=== PATIENT | male | born 1945 | race Caucasian/White ===

== ENCOUNTER 2020-06-28 13:56 | Outpatient (CLI) | payer MEDICARE, BC, SELFPAY ==
--- NOTE | 2020-06-28 14:35 | ECG_ITS ---
Measurements Intervals [place] Rate: 47 P: 80 MO: 237 QRS: 40 QRSD: 105 T: 43 QT: 456 QTc: 404 Interpretive Statements SINUS BRADYCARDIA WITH FIRST DEGREE AV BLOCK DELAYED PRECORDIAL R/S TRANSITION ABNORMAL ECG Electronically Signed On 06-28-2020 14:39:19 CDT by Shimon Hendrickson D.O.
== END 2020-06-28 13:57 | disposition home or self-care (01) ==
LOC: CHSCARD 14:01
PROVIDERS: PCP Family Medicine
DX: I48.0 Paroxysmal atrial fibrillation (principal)
CPT/HCPCS: 93005

== ENCOUNTER 2020-08-27 13:11 | Outpatient (CLI) | payer MEDICARE, BC, SELFPAY ==
--- NOTE | 2020-08-27 13:45 | ECG_ITS ---
Measurements Intervals [place] Rate: 52 P: 98 [place]: 221 QRS: 45 QRSD: 97 T: 53 QT: 437 QTc: 407 Interpretive Statements SINUS BRADYCARDIA WITH FIRST DEGREE AV BLOCK INCOMPLETE RIGHT BUNDLE BRANCH BLOCK DELAYED PRECORDIAL R/S TRANSITION MINIMAL Q WAVES- INFERIOR LEADS ABNORMAL ECG Electronically Signed On 08-27-2020 13:50:59 CDT by Shimon Hendrickson D.O.
== END 2020-08-27 13:12 | disposition home or self-care (01) ==
PROVIDERS: PCP Family Medicine
DX: I48.0 Paroxysmal atrial fibrillation (principal)
CPT/HCPCS: 93005

== ENCOUNTER 2021-02-20 13:25 | Outpatient (CLI) | payer MEDICARE, SELFPAY ==
[2021-02-20 15:12] LABS: Prostate Specific Antigen 0.5 ng/mL (< OR = 4.0)
== END 2021-02-20 13:26 | disposition home or self-care (01) ==
LOC: CHSLAB 13:29
PROVIDERS: PCP Family Medicine; Visit Provider Urology
DX: Z12.5 Encounter for screening for malignant neoplasm of prostate (principal)
CPT/HCPCS: 36415; 84153; G0103

== ENCOUNTER 2022-02-21 09:43 | Emergency (ER) | payer MEDICARE, BC, SELFPAY ==
--- NOTE | ~2022-02-21 | CT_ITS ---
EXAMINATION: CT lumbar spine [facility] EXAM DATE: 02/21/2022 10:54 INDICATION: Sciatica to LT side hip, buttocks, and knee . TECHNIQUE: Spiral CT of the lumbar spine was performed without contrast. Axial, coronal and sagittal images lumbar spine were reviewed. The dose-length product (DLP) for this examination was 365.23 mG y-cm. The exposure was tailored according to patient size (auto mA exposure control), and iterative reconstruction (ASIR) was used as additional dose reduction technique. Correlation is made to Lumbar x-ray 04/17/2018. FINDINGS: Moderate to severe disc disease L2-3 and L4-5, moderate at L1-3 and L3-4. The vertebral bod ies are aligned in the AP dimension. There are no acute fractures identified. Sacroiliac joints are u nremarkable. There are no osteoblastic or osteolytic lesions identified. No spondylolysis. Level by level evaluation: T12-L1: Disc does not extend beyond the endplate margin. Facet arthropathy: None. Neural foraminal stenosis: No stenosis. Central canal stenosis: No stenosis. L1-L2: There is a mild diffuse disc bulge. Facet arthropathy: None. Neural foraminal stenosis: No stenosis. Central canal stenosis: No stenosis. L2-L3: There is a moderate diffuse disc bulge. Facet arthropathy: Mild. Neural foraminal stenosis: Mild to moderate left, mild right. Central canal stenosis: Mild to moderate. L3-L4: There is a moderate diffuse disc bulge. Facet arthropathy: Mild. Neural foraminal stenosis: Mild to moderate bilateral. Central canal stenosis: Mild to moderate. L4-L5: There is a moderate diffuse disc bulge. Facet arthropathy: Moderate. Neural foraminal stenosis: Moderate right, mild to moderate left. Central canal stenosis: Moderate. L5-S1: There is a moderate diffuse disc bulge. Facet arthropathy: Moderate to severe left, moderate right. Neural foraminal stenosis: Moderate to severe right, moderate left. Central canal stenosis: Mild to moderate. IMPRESSION: 1. Moderate to severe L2-3, L4-5 disc disease. 2. L4-5 moderate central canal stenosis. 3. Right L5-S1 neural foramina most narrowed on study. Reviewed, dictated and finalized at location B.
[2022-02-21 10:04] VITALS: BP 121/67; PULSE 63; RESP 20; TEMP 36.7; O2SAT 98
--- NOTE | 2022-02-21 10:07 | ED.BACK ---
HPI - Back Pain/Injury General Chief Complaint: Back Pain/Injury Stated Complaint: BACK PAIN Time Seen by Provider: 02/21/22 10:08 Source: patient History of Present Illness HPI Narrative: 76-year-old male with hypothyroidism, dyslipidemia and atrial fibrillation on propafenone presents to the ER with a 7 day history of -- left lower back pain radiating to his buttocks and into the back of his thigh and to the lateral aspect of his thigh and knee. Pain is lancinating, lasting for a few seconds with certain movements of his thigh. no motor or sensory deficits. No bladder involvement. No history of trauma. MD elicited complaint: back pain Onset (ago): day(s) ( Started 8 days ago.) Timing: intermittent Severity: moderate Pain scale (0-10): 4 Similar Symptoms Previously: No Quality: stabbing Location: lumbar spine Radiation: buttocks and left upper leg Exacerbating factors: movement Relieving factors: immobilization Associated symptoms: denies other symptoms Work related injury: No Related Data Home Medications Medication Instructions Recorded Confirmed atenolol 100 mg PO DAILY 02/21/22 02/21/22 levothyroxine [Synthroid] 88 mcg PO DAILY 02/21/22 02/21/22 propafenone 300 mg PO TID 02/21/22 02/21/22 rosuvastatin 20 mg PO HS 02/21/22 02/21/22 Allergies Allergy/AdvReac Type Severity Reaction Status Date / Time No Known Allergies Allergy Verified 02/21/22 10:14 Review of Systems Review of Systems: All systems reviewed & are unremarkable except as noted in HPI and below Constitutional: Constitutional: Reports as per HPI and Reports no additional constitutional complaints Eyes: Eyes: Reports as per HPI and Reports no additional eye complaints ENT: Reports system reviewed and no additional complaints, except as documented and Reports as per HPI Cardiovascular: Cardiovascular: Reports as per HPI and Reports no additional cardiovascular complaints Respiratory: Respiratory: Reports as per HPI and Reports no additional respiratory complaints Gastrointestinal: Gastrointestinal: Reports as per HPI and Reports no additional gastrointestinal complaints Genitourinary: Genitourinary: Reports no additional male genitourinary complaints and Reports as per HPI Musculoskeletal: Musculoskeletal: Reports no additional musculoskeletal complaints, Reports as per HPI and Reports back pain Integumentary/Breasts: Skin/Breast: Reports system reviewed and no additional complaints, except as docu and Reports as per HPI Neurologic: Reports system reviewed and no additional complaints, except as documented and Reports as per HPI Psychiatric: Psychiatric: Reports no additional psychiatric complaints and Reports as per HPI Endocrine: Endocrine: Reports no additional endocrine complaints and Reports as per HPI Hematologic/Lymphatic: Hematologic/Lymphatic: Reports no additional hematologic/lymphatic complaints and Reports as per HPI Allergic/Immunologic: Allergic/Immunologic: Reports no additional allergic/immunologic complaints and Reports as per HPI [facility] Past Medical History Medical History Atrial fibrillation Dyslipidemia Hypothyroid Exam Const: General: no acute distress and alert Orientation/consciousness: patient oriented x3 HENMT: Head: normal to inspection Eyes: Conjunctivae: conjunctivae normal Pupils: Equal, round and reactive pupils present EOM: EOMs intact bilaterally Neck: Neck: normal visual inspection and no lymphadenopathy Chest: Chest palpation & inspection: normal inspection of the chest and abnormal inspection of the chest Resp: Effort & Inspection: normal respiratory effort Auscultation: clear to auscultation bilaterally Cardio: Rate: regular rate Rhythm: regular rhythm GI: GI Palp: Yes Soft to palpation Other: no tenderness/ rigidity / rebound. : Male General Exam: Yes normal external exam Testes: Testes normal Back/Spine/Pelvis:
[2022-02-21 11:40] VITALS: BP 111/56; PULSE 52; RESP 20; TEMP 36.7; O2SAT 96
== END 2022-02-21 11:43 | disposition home or self-care (01) ==
PROVIDERS: Emergency Provider Internal Medicine Critical Care Medicine; PCP Family Medicine
DX: M48.061 Spinal stenosis, lumbar region without neurogenic claudication (principal); M54.42 Lumbago with sciatica, left side; M51.27 Other intervertebral disc displacement, lumbosacral region
CPT/HCPCS: 72131; 99284

== ENCOUNTER 2022-02-28 06:46 | Outpatient (CLI) | payer MEDICARE, BC, SELFPAY ==
--- NOTE | ~2022-02-28 | MR_ITS ---
EXAMINATION: MR lumbar spine wo con DATE: 02/28/2022 08:31 INDICATION: Left-sided lumbar radiculopathy. TECHNIQUE: Magnetic resonance imaging (MRI) of the lumbar spine was performed without intravenous con trast. Sequences included sagittal T2-weighted FSE, sagittal T2-weighted FS FSE, sagittal T1-weighted FSE, and axial T2-weighted FSE. COMPARISON: Lumbar spine MRI 12/22/2015 FINDINGS: There is 7 degrees levocurvature of lumbar spine. There is 3 mm retrolisthesis of L4 on L5. There are Schmorl's nodes at multiple levels. There is mildly decreased disc height at L1-L2, severe ly decreased disc height at L2-L3, mildly decreased disc height at L3-L4, severely decreased disc hei ght at L4-L5, and moderately decreased disc height at L5-S1 with endplate remodeling. The distal spin al cord signal intensity is normal. The conus medullaris is at L1-L2. The following disc levels are s pecifically discussed: L1-L2: The disc is bulging and has an annular fissure. There is mild bilateral facet joint osteoarthr itis. There is mild bilateral neural foraminal stenosis. There is mild central canal stenosis. L2-L3: The disc is bulging with superimposed left subarticular and foraminal zone extrusion. There is mild bilateral facet joint osteoarthritis. There is mild right and moderate left neural foraminal st enosis. There is mild central canal stenosis. L3-L4: The disc is bulging and has an annular fissure. There is severe right and mild left facet join t osteoarthritis. There is mild bilateral neural foraminal stenosis. There is mild central canal sten osis. L4-L5: The disc is bulging and has an annular fissure. There is severe bilateral facet joint osteoart hritis. There is moderate bilateral neural foraminal stenosis. There is mild central canal stenosis. L5-S1: The disc is bulging and has an annular fissure. There is severe bilateral facet joint osteoart hritis. There is moderate bilateral neural foraminal stenosis. There is mild central canal stenosis. IMPRESSION: 1. Severe lumbar spondylosis, worsened from 12/22/2015. Reviewed, dictated and finalized at location B.
== END 2022-02-28 06:47 | disposition home or self-care (01) ==
LOC: CHSIMG 06:47
PROVIDERS: PCP Family Medicine; Visit Provider Family Medicine
DX: M54.16 Radiculopathy, lumbar region (principal)
CPT/HCPCS: 72148

== ENCOUNTER 2022-03-14 16:34 | Emergency (ER) | payer MEDICARE, BC, SELFPAY ==
[2022-03-14 16:40] VITALS: BP 114/63; PULSE 60; RESP 16; TEMP 36.5; O2SAT 97
--- NOTE | 2022-03-14 17:09 | ED.BACK ---
HPI - Back Pain/Injury General Chief Complaint: Back Pain/Injury Stated Complaint: left sided back and leg pain Time Seen by Provider: 03/14/22 16:38 Source: patient and RN notes reviewed Mode of arrival: ambulatory Limitations: no limitations History of Present Illness MD elicited complaint: back pain Pertinent past history: prior back pain Onset (ago): day(s) (3) Timing: constant Severity: moderate Pain scale (0-10): 6 Similar Symptoms Previously: Yes Quality: dull and aching Location: left lower back (to left buttock radiating ) Radiation: buttocks Exacerbating factors: movement Relieving factors: none Associated symptoms: denies other symptoms Treatments prior to arrival: prescription analgesics Work related injury: No Related Data Home Medications Medication Instructions Recorded Confirmed atenolol 100 mg PO DAILY 02/21/22 03/14/22 levothyroxine [Synthroid] 88 mcg PO DAILY 02/21/22 03/14/22 propafenone 300 mg PO TID 02/21/22 03/14/22 rosuvastatin 20 mg PO HS 02/21/22 03/14/22 aspirin 81 mg PO DAILY 03/14/22 03/14/22 Allergies Allergy/AdvReac Type Severity Reaction Status Date / Time No Known Allergies Allergy Verified 03/14/22 16:51 Review of Systems Review of Systems: All systems reviewed & are unremarkable except as noted in HPI and below PMFSH Past Medical History Medical History Atrial fibrillation Dyslipidemia Hypothyroid Sciatica Exam Const: General: healthy appearing, no acute distress and alert Nutritional Appearance: well nourished Orientation/consciousness: patient oriented x3 HENMT: Head: normal to inspection Ears: external ears normal, TM's normal bilaterally and EAC's normal General nose exam: Normal external nose present and Normal nares present Face and sinus: normal facial exam and sinuses nontender Mouth: Yes lip normal and Yes moist mucous membranes Throat: posterior oropharynx normal Eyes: Conjunctivae: conjunctivae normal Pupils: Equal, round and reactive pupils present EOM: EOMs intact bilaterally Neck: Neck: normal visual inspection and no lymphadenopathy Chest: Chest palpation & inspection: normal inspection of the chest Resp: Effort & Inspection: normal respiratory effort Auscultation: clear to auscultation bilaterally Cardio: Rate: regular rate Rhythm: regular rhythm GI: GI Palp: Yes Soft to palpation and No Tenderness to palpation present (GI) Auscultation: normal bowel sounds : General: Yes bladder normal to palpation and Yes no CVA tenderness Back/Spine/Pelvis: Back: no CVA tenderness Skin: General skin exam: normal color Neuro: General: patient oriented x3, moves all extremities, no meningeal signs, no focal motor deficits and CN's II-XI intact bilaterally Extrem: General: normal to inspection and no pedal edema Other: minimally tender left upper and lateral buttock with no acute redness, swelling or deformity. normal ambulation. no acute neurovascular deficit of lower extremities. Psych: Appearance: grossly normal and well kempt Mental Status: mental status grossly normal Affect: normal affect Attitude: cooperative Thought content: Yes Normal thought content present Course Course Emergency Course: Pt was stable in the ED, less painful. Reevaluation(s) Date: 03/14/22 Time: 17:30 Vital Signs Vital signs: Vital Signs Temperature 36.5 C 03/14/22 16:40 Pulse Rate 60 03/14/22 16:40 Respiratory Rate 16 03/14/22 16:40 Blood Pressure 114/63 03/14/22 16:40 Pulse Oximetry 97 03/14/22 16:40 Temperature 36.5 C 03/14/22 16:40 Pulse Rate 60 03/14/22 16:40 Respiratory Rate 16 03/14/22 16:40 Blo
[2022-03-14] MEDS: KETOROLAC 30 MG/ML VIAL (*BKC) IM (17:12)
== END 2022-03-14 17:16 | disposition home or self-care (01) ==
PROVIDERS: Emergency Provider Emergency Medicine; PCP Family Medicine
DX: M54.32 Sciatica, left side (principal)
CPT/HCPCS: 96372; 99283; J1885

== ENCOUNTER 2022-04-17 13:07 | Emergency (ER) | payer MEDICARE, BC, SELFPAY ==
--- NOTE | 2022-04-17 13:23 | ED.BACK ---
HPI - Back Pain/Injury General Chief Complaint: Back Pain/Injury Stated Complaint: Back pain Time Seen by Provider: 04/17/22 13:23 Source: patient Mode of arrival: ambulatory History of Present Illness HPI Narrative: 76-year-old male with a history of, dyslipidemia, atrial fibrillation on propafenone, chronic low back pain had a recent MRI which revealed severe lumbar spondylosis. It revealed schmorls nodes at multiple levels, decreased intervertebral disc height with bulging at multiple levels with neural foraminal stenosis and mild central canal stenosis. The patient follows up with Dr. Caraballo on a regular basis. The patient came to the ER on 02/21/2022 when I saw him and give him [place]. He saw Dr. Gee on 03/16/2022 who gave him oxycodone 120 pills. The patient went to Dr. Gee's office the conduct see Dr. Gee. He was seen by Dr. Gee's associate refused to give him any pain pills. The patient complains of -- with low back pain radiating to his left lower extremities. His pain is severe and intolerable. No bladder or bowel involvement. No sensory loss. MD elicited complaint: back pain Pertinent past history: prior back pain Onset (ago): month(s) Timing: intermittent Severity: severe Pain scale (0-10): 10 Similar Symptoms Previously: Yes Quality: aching Location: lumbar spine Radiation: left leg below the knee Exacerbating factors: movement Relieving factors: immobilization Associated symptoms: denies other symptoms Work related injury: No Related Data Home Medications Medication Instructions Recorded Confirmed atenolol 100 mg tablet 100 mg PO DAILY 02/21/22 04/17/22 levothyroxine 88 mcg tablet 88 mcg PO DAILY 02/21/22 04/17/22 (Synthroid) propafenone 300 mg tablet 300 mg PO TID 02/21/22 04/17/22 rosuvastatin 20 mg tablet 20 mg PO HS 02/21/22 04/17/22 aspirin 81 mg tablet 81 mg PO DAILY 03/14/22 04/17/22 oxycodone 10 mg tablet 10 mg PO Q6H PRN Pain 04/17/22 04/17/22 Allergies Allergy/AdvReac Type Severity Reaction Status Date / Time No Known Allergies Allergy Verified 03/14/22 16:51 Review of Systems Review of Systems: All systems reviewed & are unremarkable except as noted in HPI and below Constitutional: Constitutional: Reports as per HPI and Reports no additional constitutional complaints Eyes: Eyes: Reports as per HPI and Reports no additional eye complaints ENT: Reports system reviewed and no additional complaints, except as documented and Reports as per HPI Cardiovascular: Cardiovascular: Reports as per HPI and Reports no additional cardiovascular complaints Respiratory: Respiratory: Reports as per HPI and Reports no additional respiratory complaints Gastrointestinal: Gastrointestinal: Reports as per HPI and Reports no additional gastrointestinal complaints Genitourinary: Genitourinary: Reports no additional male genitourinary complaints and Reports as per HPI Musculoskeletal: Musculoskeletal: Reports no additional musculoskeletal complaints, Reports as per HPI and Reports back pain Comments: Low back pain with pain in multiple areas of the left lower extremities. No motor or sensory loss. Integumentary/Breasts: Skin/Breast: Reports system reviewed and no additional complaints, except as docu Neurologic: Reports system reviewed and no additional complaints, except as documented and Reports as per HPI Psychiatric: Psychiatric: Reports no additional psychiatric complaints and Reports as per HPI Endocrine: Endocrine: Reports no additional endocrine complaints and Reports as per HPI Hematologic/Lymphatic: Hematologic/Lymphatic: Reports no additional hematologic/lymphatic complaints and Reports as per HPI Allergic/Immunologic: Allergic/Immunologic: Reports no additional allergic/immunologic complaints and Reports as per HPI [facility] Past Medical History Medical History Atrial fibrillation Dyslipidemia Hypothyroid Sciatica
[2022-04-17 13:24] VITALS: BP 133/79; PULSE 56; TEMP 36.6; O2SAT 99
[2022-04-17 13:32] VITALS: BP 133/79; PULSE 78; RESP 20; TEMP 36.6; O2SAT 98
[2022-04-17 14:36] VITALS: BP 130/79; PULSE 84; RESP 18; O2SAT 99
[2022-04-17 14:41] VITALS: TEMP 36.6
== END 2022-04-17 14:43 | disposition home or self-care (01) ==
PROVIDERS: Emergency Provider Internal Medicine Critical Care Medicine
DX: M47.817 Spondylosis without myelopathy or radiculopathy, lumbosacral region (principal)
CPT/HCPCS: 99283

== ENCOUNTER 2025-05-09 19:42 | Outpatient (CLI) | payer MEDICARE, BC, SELFPAY ==
[2025-06-09 12:41] VITALS: BMI 23.5
--- NOTE | 2025-06-09 12:41 | P.SLEEP_ITS ---
Sleep Study Date of Study: 05/09/25 Ordering Provider: Ji CareyMD Interpreting Physician: Kimberly Russo, DO Sleep Study Type: Polysomnogram Height: 1.7 m Weight: 68.039 kg Body Mass Index: 23.5 Neck Circumference (inches): 14.25 Harper: 9 Reason for Sleep Study snoring, difficulty falling and staying asleep Sleep History The patient is a 79-year-old male who had a sleep study ordered by his ENT for evaluation of sleep apnea. The patient denies awakening from sleep short of breath. He denies awakening at night with heartburn, belching, or cough. He occasionally snores, and it is occasionally loud enough that others complain. He rarely has trouble sleeping when he has a cold. He denies waking up gasping for air throughout the night. He denies having breathing problems at night observed by himself or others. He rarely sweats excessively at night. He denies having heart palpitations or irregular heartbeats during the night. He occasionally falls asleep during the day but rarely while driving. He denies sleep paralysis, cataplexy, and hypnagogic/hypnopompic hallucinations. He occasionally has trouble at school or work due to sleepiness. He denies feeling afraid of going to sleep. He rarely has nightmares. He rarely remembers his dreams. He occasionally has thoughts racing through his mind. He rarely feels sad or depressed. He occasionally has anxiety. He rarely has muscular tension. He denies noticing parts of his body jerk. He denies kicking during the night. He denies having crawling and aching feelings in his legs and denies having leg pain during the night. He denies grinding his teeth during sleep and denies awakening with morning jaw pain. He denies being bothered by pain during the day and denies being awakened by pain during the night. He denies waking up feeling stiff in the morning. He denies waking up with sore or aching muscles. He denies waking up with pain in the neck, spine, and other joints. He goes to bed at 11:30 p.m. every night. The amount of time it takes for him to fall asleep is variable. He wakes up 2-4 times throughout the night. He wakes up at 6 a.m. every morning. He typically gets 4 to 5 hours of sleep per night. He will stay in bed for up to an hour after waking up in the morning. He currently lives alone. He denies consuming any caffeinated beverages within 2 hours of bedtime. He denies engaging in physical exercise before bedtime. He denies reading and watching television before falling asleep. He will take naps in the afternoon or the evening, and they are refreshing. He denies consuming any caffeinated beverages throughout the day. He denies tobacco, alcohol, and recreational drug use. [facility] Past Medical History Medical History Sciatica Atrial fibrillation Dyslipidemia Hypothyroid Family History Family History Father Cerebrovascular accident Mother Diabetes mellitus Hypertension Social History Social History Smoking status: Never smoker Alcohol intake: never Substance use: never Lack of Transportation: No Lack of Food: Never True Current Housing: I Have Housing Concerned About Future Housing: No Difficulty Paying Gas/Electric Bills: No Difficulty Paying for Meds: No Currently Unemployed: No Education: High School Diploma/GED Difficulty w/ Childcare or Family Care: No Living arrangements: alone Occupation/Education: retired Gender identity (if verbalized by the patient): Male Medications Home Medications ?Medication ?Instructions ?Recorded ?Confirmed ?Type atenolol 100 mg tablet 100 mg PO DAILY 02/21/22 05/27/25 History levothyroxine 88 mcg tablet 88 mcg PO DAILY 02/21/22 05/27/25 History (Synthroid) propafenone 300 mg tablet 300 mg PO TID 02/21/22 05/27/25 History apixaban 5 mg tablet (Eliquis) 5 mg PO 02/13/23 05/27/25 History ciprofloxacin 0.3 %-dexamethasone 5 drp LEFT EAR TID 14 days #7.5 mL 05/27/25 05/27/25 Rx 0.1 % ear drops,suspension fexofenadine 180 mg tablet 180 mg PO DAILY 05/27/25 05/27/25 History hydrocodone 7.5 mg-acetaminophen tablet PO 05/27/25 05/27/25 History 325 mg tablet Sleep Procedure A full night polysomnogram using the [employer] multi-channel system recor ded the standard physiologic parameters including EEG, EOG, submentalis EMG, anterior tibialis EMG, EKG, body position, nasal and oral airflow using nasal pressure sensor and thermistor.? Respiratory parameters of chest and abdominal movements were recorded with Respiratory Inductance Plethysmography belts. Oxygen saturation was recorded by pulse oximetry. Video monitoring was also performed. Sleep stages, periodic limb movements, and EEG arousals were scored in 30 second epochs according to the criteria of the AASM Scoring Manual. The Apnea-Hypopnea Index was calculated using [facility] guidelines for definition of hypopnea with 4% O2 desaturations while scoring respiratory events. Sleep Architecture The total recording time was 474.6 minutes.? The total sleep time was 252.5 minutes. Sleep latency was 3.6 minutes. REM latency was 291.0 minutes. Sleep efficiency was 53.2%. The patient had 34 awakenings for an awakening index of 8.1. Wake after sleep onset time was 218.5 minutes. The patient spent 29.5 minutes, 11.7% of total sleep time in Stage N1. The patient spent 105.5 minutes, 41.8% in Stage N2. The patient spent 26.0 minutes, 10.3% in Stage N3. The patient spent 91.5 minutes, 36.2% in Stage REM sleep. Respiratory Analysis The patient had 9 hypopneas, 22 obstructive apneas and 1 mixed apnea for an overall Apnea Hypopnea Index of 7.6. The REM Apnea Hypopnea Index was 2.0. The NREM Apnea Hypopnea Index was 11.6. The patient had a Central Apnea Hypopnea Index of 0. There was no evidence of Bala-Altamirano Respirations. Arousals There were 57 total arousals for an arousal index of 13.5. There were 17 spontaneous arousals for an index of 4.0. There were 21 arousals due to respiratory events for an index of 5.0. There were 18 arousals due to periodic limb movements for an index of 4.3.? There were 2 arousals due to isolated limb movements for an index of 0.5. Periodic Limb Movements The patient had 3 isolated limb movements with an index of 0.7. The patient had 447 periodic limb movements with an index of 106.2, which is elevated (normal < 15). Patient had a total of 450 limb movements with a total limb movement index of 106.9. Oximetry Data The patient had an average oxygen saturation of 94.2% in sleep with a minimum oxygen saturation of 90.0% and a maximum oxygen saturation of 98.0%. The patient had 18 oxygen desaturations that were 4% or greater resulting in an Oxygen Desaturation Index of 4.3.? The patient spent 0 minutes of total sleep time with an oxygen saturation below 88%. Snoring Profile Mild snoring was present intermittently throughout the study. Cardiac Profile The EKG showed normal sinus rhythm with rare PVCs. The patient had an average pulse rate of 50.3 bpm with a minimum pulse of rate of 48.0 bpm and a maximum pulse rate of 60.0 bpm.? EEG Profile No signs of seizure activity seen. Assessment and Plan Assessment and Plan (1) RANJIT (obstructive sleep apnea): Code(s): G47.33 - Obstructive sleep apnea (adult) (pediatric) Status: Acute Assessment and Plan: The patient had an overall AHI of 7.6 with desaturation down to 90%. This is consistent with mild sleep apnea. Due to the patient's atrial fibrillation, he qualifies for treatment. I recommend that the patient have a CPAP Titration study with the use of a hypnotic to ensure we obtain enough sleep data and find an optimal pressure setting. A mandibular advancement device is also an acceptable treatment option. Data The data obtained during this sleep study is adequate for interpretation. Certification This sleep study has been reviewed by a board certified sleep medicine physician.
== END 2025-05-10 05:55 | disposition home or self-care (01) ==
LOC: CHSCSM 19:44
PROVIDERS: PCP Physician Assistant; Visit Provider Otolaryngology
DX: G47.33 Obstructive sleep apnea (adult) (pediatric) (principal); F51.04 Psychophysiologic insomnia
CPT/HCPCS: 95810

== ENCOUNTER 2025-07-08 07:15 | Outpatient (CLI) | payer MEDICARE, BC, SELFPAY | END 2025-07-08 07:16 | disposition home or self-care (01) | LOC: ANHAUDASC 07:16 | PROVIDERS: PCP Family Medicine; Visit Provider Otolaryngology | DX: H72.92 Unspecified perforation of tympanic membrane, left ear (principal); H90.41 Sensorineural hearing loss, unilateral, right ear, with unrestricted hearing on the contralateral side; H90.72 Mixed conductive and sensorineural hearing loss, unilateral, left ear, with unrestricted hearing on the contralateral side | CPT/HCPCS: 92557; 92567 ==

== ENCOUNTER 2025-07-21 10:05 | Outpatient (CLI) | payer MEDICARE, BC, SELFPAY ==
--- NOTE | 2025-07-21 10:10 | ECHO_ITS ---
Patient Info Name: Ga Porter Age: 80 years : 1945 Gender: Male Ht: 67 in Wt: 145 lbs BSA: 1.77 m2 HR: 62 bpm BP: 109 / 64 mmHg Technical Quality: Good Exam Date: 07/21/2025 10:11 AM Patient Status: O Admit Date: 07/21/2025 Exam Type: CA echo doppler color flow Complete two-dimensional, color flow and Doppler transthoracic echocardiogram is performed. [employer] Rehabilitation Consultant: Shayy Cristobal Summary 1. Complete two-dimensional, color flow and Doppler transthoracic echocardiogram is performed. 2. Left ventricular chamber dimension is normal. 3. Left ventricular systolic function is normal, estimated at 60-65. 4. The left ventricular diastolic function is abnormal. 5. E/e' 10 is mildly elevated. 6. Left atrial chamber dimension is mildly enlarged. 7. There is mild aortic valve sclerosis. 8. There is mild to moderate aortic valve regurgitation. 9. There is mild mitral valve regurgitation. 10. There is mild tricuspid valve regurgitation. 11. No pulmonary hypertension, estimated pulmonary arterial systolic pressure is 28 mmHg. Left Ventricle E/e' 10 is mildly elevated. Left ventricular chamber dimension is normal. Left ventricular systolic function is normal, estimated at 60-65. The left ventricular diastolic function is abnormal. Right Ventricle Right ventricular chamber dimension is normal. Right ventricular systolic function is normal. Left Atria Left atrial chamber dimension is mildly enlarged. Right Atria Right atrial chamber dimension is normal. Aortic Valve The aortic valve is trileaflet. There is mild aortic valve sclerosis. There is no aortic valve stenosis. There is mild to moderate aortic valve regurgitation. Pulmonic Valve There is no pulmonic regurgitation. Mitral Valve There is no mitral valve stenosis. There is mild mitral valve regurgitation. Tricuspid Valve There is mild tricuspid valve regurgitation. No pulmonary hypertension, estimated pulmonary arterial systolic pressure is 28 mmHg. Pericardium/Pleural There is no pericardial effusion. Inferior Vena Cava Normal inferior vena cava with >50% collapse upon inspiration consistent with normal right atrial pressure, 5 mmHg. Aorta The aortic root size at the sinus of Valsalva is normal. Left Ventricular Outflow Tract Name Value Normal LVOT 2D LVOT Diameter 2.0 cm LVOT Doppler LVOT Peak Velocity 113 cm/s LVOT Peak Gradient 5 mmHg LVOT Mean Gradient 3 mmHg LVOT VTI 27 cm LVOT VTI/AV VTI Ratio 0.7 LVOT Stroke Volume 82 ml LVOT CO 5.1 l/min LVOT CI 2.9 l/min/m2 Pulmonic Valve Name Value Normal RVOT Doppler RVOT Peak Velocity 52 cm/s RVOT Peak Gradient 1 mmHg PV Doppler PV Peak Velocity 103 cm/s PV Peak Gradient 4 mmHg Mitral Valve Name Value Normal MV Diastolic Function MV E Peak Velocity 86 cm/s MV A Peak Velocity 67 cm/s MV E/A 1.3 MV Decel Time (PW) 241 ms MV Annular TDI MV E/e' (Septal) 13.4 MV E/e' (Lateral) 8.8 MV E/e' (Average) 11.1 Tricuspid Valve Name Value Normal TV Regurgitation Doppler TR Peak Velocity 237 cm/s TR Peak Gradient 23 mmHg Estimated PAP/RSVP RA Pressure 5 mmHg <=5 PA Systolic Pressure 28 mmHg <36 RV Systolic Pressure 28 mmHg <36 Aortic Valve Name Value Normal AV Doppler AV Peak Velocity 179 cm/s AV Peak Gradient 11 mmHg AV Mean Gradient 6 mmHg AV VTI 42 cm AV Area (Cont Eq VTI) 2.0 cm2 >=3.0 AV Area (Cont Eq Delfino) 1.9 cm2 AV DI (Delfino) 0.63 AV Regurgitation 2D LVOT Area 3.0 cm2 Ventricles Name Value Normal LV Dimensions 2D/MM IVS Diastolic Thickness (2D) 1.0 cm 0.6-1.0 LVID Diastole (2D) 5.0 cm 4.2-5.8 LVIW Diastolic Thickness (2D) 0.9 cm 0.6-1.0 LVID Systole (2D) 3.1 cm 2.5-4.0 LVOT Diameter 2.0 cm LV Mass (2D Cubed) 164.02 g 88.00-224.00 LV Mass Index (2D Cubed) 93 g/m2 49-115 Relative Wall Thickness (2D) 0.36 <=0.42 LV Fractional Shortening/Ejection Fraction 2D/MM LV Fractional Shortening (2D) 37 % 25-43 LV EF (2D Teichholz) 67 % LV Diastolic Volume (4C MOD) 108 ml LV EF (4C MOD) 62 % LV Diastolic Volume (2C MOD) 106 ml LV EF (2C MOD) 60 % LV Diastolic Volume (BP MOD) 106 ml 62-150 LV Diastolic Volume Index (BP MOD) 60 ml/m2 34-74 LV Systolic Volume (BP MOD) 42 ml 21-61 LV Systolic Volume Index (BP MOD) 24 ml/m2 11-31 LV EF (BP MOD) 61 % 52-72 LV Diastolic Length (4C) 8.1 cm LV Systolic Length (4C) 6.7 cm LV Stroke Volume (4C MOD) 66 ml Atria Name Value Normal LA Dimensions LA Volume (4C A-L) 57 ml LA Volume (BP A-L) 68 ml RA Dimensions RA Systolic Major [place] Length (4C) 5.1 cm 2.1-2.7 RA Area (4C) 13.5 cm2 <=18.0 Report Signatures
--- OUTSIDE RECORDS SUMMARY | 2025-07-21 11:34 | XMS_ITS | Encounter Summary ---
Author Organization [facility] Address [address] [place] [address] Phone Care Team Providers Care Actuarial Mathematician Name Role Phone Oksana Garcia MD Primary Care Provider Encounter Details Date Type Department Care Team (Late st Contact Info) Description 07/07/2025 Telephone [facility] Medicine Cardiology [address] [facility] Advanced Medicine 8th [place] [address] [place] [id number] José Manuel Elena MD PhD [address] [facility] [address] [place] [address] Social History Tobacco Use Types Packs/Day Years Used Date Smoking Tobacco: Never Smokeless Tobacco: Never Alcohol Use Standard Drinks/Week Comments No 0 (1 standard drink = 0.6 oz pur e alcohol) Sex and Gender Information Value Date Recorded Sex Assigned at Not on file 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 It is scheduled for Jul 21 @ 11 am. documented in this encounter Plan of Treatment Not on file documented as of this encounter Visit Diagnoses Not on filedocumented in this encounter Care Teams Actuarial Mathematician Relationship Specialty Start Date End Date Oksana Garcia MD [address] [place] [id number] PCP - General Family Medicine 07/06/25 documented as of this encounter
--- OUTSIDE RECORDS SUMMARY | 2025-07-21 11:34 | XMS_ITS | Encounter Summary ---
Author Organization [facility] [employer] [facility] Address [address] [place] [address] Phone Care Team Providers Care Cab Supervisor Name Role Phone Oksana Garcia MD Primary Care Provider Encounter Details Date Type Department Care Team (Late st Contact Info) Description 2025 Results Follow-Up [facility] Cardiology [address] [facility] Advanced Medicine 8th [address] [place] [address] José Manuel Elena MD PhD [address] [facility] [address] [place] [address] ECG 12 lead Social History Tobacco Use Types Packs/Day Years Used Date Smoking Tobacco: Never Smokeless Tobacco: Never Alcohol Use Standard Drinks/Week Comments No 0 (1 standard drink = 0.6 oz pur e alcohol) Sex and Gender Information Value Date Recorded Sex Assigned at Not on file 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
--- OUTSIDE RECORDS SUMMARY | 2025-07-21 11:34 | XMS_ITS | Clinical Summary ---
Author Organization [facility] Address [address] [place] [address] Care Team Providers Care Manager Program Management Name Role Phone Oksana Garcia MD Primary Care Provider Allergies No known active allergies Medications multivitamin with iron tablet Take by mouth daily. Active Synthroid 88 mcg tablet Take 1 tablet (88 mcg total) by mouth daily 0 Active rosuvastatin (CRESTOR) 20 mg tablet 0.5 tablets (10 mg total) daily 1 Active apixaban (Eliquis) 5 mg tablet Take 1 tablet (5 mg total) by mouth 2 (two) times a day 180 tablet 3 4 Active atenoloL (TENORMIN) 100 mg tablet Take 1 tablet (100 mg total) by mouth daily 90 tablet 3 4 Active propafenone (RYTHMOL) 300 mg tabletIndications :Paroxysmal atrial fibrillation (HCC) Take 1 tablet (300 mg total) by mouth 3 (three) times a day 270 tablet 3 4 Active Active Problems Problem Noted Date Diagnosed Date Atrial fibrillation 10/12/2014 Hypertension 10/12/2014 Encounters Date Type Department Care Team Description 07/07/2025 Telephone [facility] Medicine Cardiology [address] [facility] 8th [place] [address] [place] [address] José Manuel Elena MD PhD 2025 11:00 AM CDT Office Visit [facility] Medicine Cardiology [address] [facility] 8th [place] [address] [place] [address] José Manuel Elena MD PhD Atrial fibrillation, unspecified type (HCC) (Primary Dx) 2025 Telephone [facility] Cardiology [address] [facility] 8th [place] [address] [place] [address] José Manuel Elena MD PhD 2025 Results Follow-Up [facility] Cardiology [address] [facility] [address] [place] [address] [place] [address] José Manuel Elena MD PhD ECG 12 lead from Last 3 Months Medical History Medical History Date Comments Cardiac disease heart disease Family History Medical History Relation Name Comments Atrial fibrillation Father Family h istory of atrial fibrillation - (Added by TW Conv) Atrial fibrillation Mother Family h istory of atrial fibrillation - (Added by TW Conv) Cancer Other 1 Family history of Cancer; Diabetes Other 2 Family history of Diabetes mellitus; Hypertension Other 3 Family history of Hypertension; Relation Name Status Comments Father Mother Other 1 Other 2 Other 3 Social History Tobacco Use Types Packs/Day Years Used Date Smoking Tobacco: Never Smokeless Tobacco: Never Alcohol Use Standard Drinks/Week Comments No 0 (1 standard drink = 0.6 oz pur e alcohol) Sex and Gender Information Value Date Recorded Sex Assigned at Not on file 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 Gender Identity Not on file Sexual Orientation Not on file Obstetrics History Last Filed Vital Signs Vital Sign Reading Time Taken Comments Blood Pressure 131/73 2025 10:40 AM CDT Pulse 58 2025 10:40 AM CDT Temperature 36.4 C (97.6 F) 06/20/2021 1:38 PM CDT Respiratory Rate - - Oxygen Saturation 98% 2025 10:40 AM CDT Inhaled Oxygen Concentration - - Weight 67.6 kg (149 lb) 2025 10:40 AM CDT Height 170.2 cm (5' 7) 2025 10:40 AM CDT Body Mass Index 23.34 2025 10:40 AM CDT Plan of Treatment Health Maintenance Due Date Last Done Comments Depression Screening 1945 Fall Risk Assessment 1945 Hepatitis C Screening 1945 DTaP/Tdap/Td Vaccine (1 - Tdap) 1957 Hepatitis B Screening 1964 Pneumococcal vaccine 65+ (1 of 1 - PCV) 1996 Zoster Vaccine (1 of 2) 1996 Well Visit 65+ 2011 Influenza Vaccine (#1) 2025 9, 09/06/2017, 09/16/2014 Procedures Procedure Name Priority Date/Time Associated Diagnosis Comments ECG 12-LEAD Routine 2025 10:36 AM CDT Atrial fibrillation, unspecified type (HCC) from Last 3 Months Results * ECG 12 lead (2025 10:36 AM CDT) José Manuel Elena MD PhD ECG ORDERABLES Edited Result - Final from Last 3 Months Insurance MEDICARE [facility] Care Teams Manager Program Management Relationship Specialty Start Date End Date Oksana Garcia MD [address] [place] [id number] PCP - General Family Medicine 07/06/25
--- OUTSIDE RECORDS SUMMARY | 2025-07-21 11:34 | XMS_ITS | Encounter Summary ---
Author Organization [facility] Address [address] [place] [address] Phone Care Team Providers Care Steward/Stewardess Banquet Name Role Phone Roni Valero MD Primary Care Provider [phone] Oksana Garcia MD Primary Care Provider Encounter Details Date Type Department Care Team (Latest Contact Info) Description 08/27/2020 Orders Only [facility] Scanning, Provider Social History Tobacco Use Types Packs/Day Years Used Date Smoking Tobacco: Never Smokeless Tobacco: Never Alcohol Use Standard Drinks/Week Comments No 0 (1 standard drink = 0.6 oz pur e alcohol) Sex and Gender Information Value Date Recorded Sex Assigned at Not on file 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 Gender Identity Not on file Sexual Orientation Not on file documented as of this encounter Plan of Treatment Not on file documented as of this encounter Procedures Procedure Name Priority Date/Time Associated Diagnosis Comments CARDIOLOGY DOCUMENT SCAN 08/27/2020 documented in this encounter Results * SCAN - CARDIOLOGY (08/27/2020) Anatomical Region Laterality Modality Other us Provider Scanning CV CARDIAC SERVICES PROCEDURES Final Result documented in this encounter Visit Diagnoses Not on filedocumented in this encounter Care Teams Steward/Stewardess Banquet Relationship Specialty Start Date End Date Roni Valero MD [address] [place] [id number] PCP - General 05/07/17 07/05/25 Oksana Garcia MD [address] [place] [id number] PCP - General Family Medicine 07/06/25 documented as of this encounter
--- OUTSIDE RECORDS SUMMARY | 2025-07-21 11:34 | XMS_ITS | Encounter Summary ---
Author Organization [facility] Address [address] [place] [address] Phone Care Team Providers Care Refinery Operator Polymerization Plant Name Role Phone Roni Valero MD Primary Care Provider [phone] Oksana Garcia MD Primary Care Provider Reason for Visit * Reason Onset Date Comments Med Refill 04/17/2018 Encounter Details Date Type Department Care Team (Late st Contact Info) Description 04/17/2018 Telephone [facility] Cardiology [address] 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 Pt is aware these 3 medications are being ordered and at this time they have been ordered. Pharmacist taking the order says pt should expect med in 5-7 business days. * Telephone Encounter - Valery Elam, JOHN PAUL - 04/17/2018 5:23 PM CDT Attempted to refill verify with the number listed for [facility] - can not verify with the number that wasgiven. I have attempted to call the patient - busy signal- * Telephone Encounter - Pia Edwards - 04/17/2018 4:25 PM CDT FADDIS PROPAFENONE 300MG 1 3/DAY ATENOLOL 100MG 1/DAY LOVASTATIN 40 MG 1/DAY 4/REFILLS PLS CALL ONCE SENT [facility] [phone] documented in this encounter Plan of Treatment Not on file documented as of this encounter Visit Diagnoses Not on filedocumented in this encounter Care Teams Refinery Operator Polymerization Plant Relationship Specialty Start Date End Date Roni Valero MD [address] [place] [id number] PCP - General 05/07/17 07/05/25 Oksana Garcia MD [address] [place] [id number] PCP - General Family Medicine 07/06/25 documented as of this encounter
--- OUTSIDE RECORDS SUMMARY | 2025-07-21 11:36 | XMS_ITS | Clinical Summary ---
Author Organization [facility] Address Formerly [facility], [facility] [place] [address] Care Team Providers Care Concrete Worker Name Role Phone Mitch Gee MD Primary Care Provider Medications No known medications Active Problems Problem Noted Date Diagnosed Date Lumbar radiculopathy, acute 05/05/2022 Social History Tobacco Use Types Packs/Day Years Used Date Smoking Tobacco: Never Sex and Gender Information Value Date Recorded Sex Assigned at Not on file Legal Sex Male 10:26 PM CDT Gender Identity Not on file Sexual Orientation Not on file Last Filed Vital Signs Vital Sign Reading Time Taken Comments Blood Pressure 150/80 01/26/2014 10:43 AM CDT Pulse 52 01/26/2014 10:43 AM CDT Temperature - - Respiratory Rate 16 01/26/2014 10:43 AM CDT Oxygen Saturation - - Inhaled Oxygen Concentration - - Weight 81.8 kg (180 lb 6.4 oz) 01/26/2014 10:43 AM CDT Height 169.5 cm (5' 6.75) 01/26/2014 10:43 AM C DT Body Mass Index 28.47 01/26/2014 10:43 AM CDT Plan of Treatment Health Maintenance Due Date Last Done Comments Hepatitis C 1963 DTaP, Tdap and Td Vaccines ( 1 - Tdap) 1965 Pneumococcal Vaccine: 50+ Ye ars (1 of 1 - PCV) 1996 Zoster Vaccines (1 of 2) 1996 Annual Medicare Wellness Visit 2011 RSV Immunization or 60+ Years (1 - 1-dose 75+ series) 2021 COVID-19 Vaccine ( - 2023-2 5 season) 2024 Meningococcal B Vaccine Aged Out No l onger eligible based on patient's age to complete this topic Meningococcal Vaccine Aged Out No alejandro tori eligible based on patient's age to complete this topic RSV Immunizations Under 20 Months Aged Out No longer eligible based on patient's age to complete this topic Insurance MEDICARE [facility] Care Teams Concrete Worker Relationship Specialty Start Date End Date Mitch Gee MD [address] [place] [phone] PCP - General FAMILY PRACTICE 07/27/22
== END 2025-07-21 10:06 | disposition home or self-care (01) ==
LOC: CHSIMG 10:09
PROVIDERS: PCP Family Medicine
DX: I48.91 Unspecified atrial fibrillation (principal); I35.8 Other nonrheumatic aortic valve disorders; I08.3 Combined rheumatic disorders of mitral, aortic and tricuspid valves
CPT/HCPCS: 93306